=== PATIENT | male | born 1990 | race Caucasian/White ===

== ENCOUNTER 2019-08-18 18:18 | Emergency (ER) | payer OTHER ==
[~2019-08-18] VITALS: Ht 177.8 cm; Wt 72.7 kg
[2019-08-18 18:30] VITALS: BP 139/87
[2019-08-18 19:24] LABS: CLARITY,URINE CLEAR (Clear); COLOR,URINE STRAW (Yellow); GLUCOSE, URINE NEGATIVE (Neg); KETONES,URINE NEGATIVE (Neg); LEUKOCYTE ESTERASE ,URINE NEGATIVE (Neg); NITRITES, URINE NEGATIVE (Neg); OCCULT BLOOD,URINE NEGATIVE (Neg); PROTEIN,URINE NEGATIVE (Neg); UROBILINOGEN,URINE 0.2 E.U/dL (0.2-1.0)
[2019-08-18] MEDS ORDERED: CefTRIAXone 250MG IM Kit w/LIDOcaine IM ONE (19:35)
[2019-08-18] MEDS ORDERED: azithromycin 250mg tablet PO ONE (19:35)
[2019-08-18 19:41] LABS: UA COLLECTION TYPE CLN CATCH MIDSTREAM
== END 2019-08-18 20:26 | disposition home or self-care (01) ==
LOC: ER 18:19
DX: N48.89 Other specified disorders of penis (principal)
CPT/HCPCS: 36415; 81003; 87491; 87591; 96372; 99283; J0696